=== PATIENT | male | born 1970 | race Caucasian/White ===

== ENCOUNTER 2024-08-03 13:56 | Emergency (ER) | payer MEDICARE, SELFPAY ==
[2024-08-03 13:57] VITALS: BP 116/78
[2024-08-03 14:07] VITALS: BP 126/71; BMI 25.9
--- NOTE | 2024-08-03 14:32 | EDRN ---
awaiting for a provider to see the pt
--- NOTE | 2024-08-03 15:49 | ED.GENMED ---
History of Present Illness
General
Chief Complaint: Crisis Evaluation
Source: patient
Exam Limitations: altered mental status
Time Seen by Provider: 08/03/24 14:59
Nursing documentation reviewed up to this point in time: agreed with
History of Present Illness
History of Present Illness:
54-year-old mentally ill brought in for medical clearance prior to psychiatric placement patient apparently has not been seen for a few days family found him and brought him here here he is cooperative mumbling apparently suffers from mental illness
he smokes does not drink
Past History
Past History
ED Past Medical History: Psychiatric
Social History
Tobacco: Smoker
Alcohol: None
Drug: None
Personal: Single
Living: homeless (??)
Employment: Not employed
Review of Systems
Review of Systems
Unable to obtain full review of systems at this time due to: other (Acutely mentally ill)
All Other Systems: Not applicable
Phy Exam
Physical Exam
Physical Exam:
Physical Exam
General: Chronically ill-appearing man
Neck: No jaundice
Heart: s1/s2 regular rate and rhythm, no murmur. equal radial pulses.
Lungs: Faint wheeze
Neuro: Moves all extremity
Skin: no rash
Psychiatric: Mumbling, disorganized
Extremities: no edema.
Course
Orders/Labs/Results
Orders:
Orders
08/03/24 14:06
One to One Observation - Suicide/Violent [1:1 Observation - Suicide/ Violent Behavior] As Directed
Crisis Consult Urgent
Reason for Consult: crisis
08/03/24 15:32
Acetaminophen Urgent
Alcohol Urgent
Complete Blood Count/With Diff Urgent
Comprehensive Metabolic Panel Urgent
Salicylate Urgent
08/03/24 15:53
Add On- LAB Urgent
Tests Added?: Depakene
08/03/24 16:08
Urine Drug Abuse Screen Urgent
Date Specimen was Collected: 08/03/24
Time Specimen was Collected: 16:07
08/03/24 16:19
Depakane Urgent
Comment: CANNOT ADD. MUST BE IN PLAIN RED TUBE.
Abnormal Lab Results
08/03/24
15:32
WBC 17.2 H 10^3/uL
(4.8-10.8)
RBC 4.37 L 10^6/uL
(4.70-6.10)
Hct 38.4 L %
(39.0-52.0)
MCH 31.4 H pg
(27.0-31.0)
Potassium 5.4 H mmol/L
(3.5-5.1)
Glucose 108 H mg/dl
(70-99)
Total Bilirubin 2.2 H mg/dl
(0.2-1.3)
AST 69 H U/L
(17-59)
Salicylates < 1.0 L mg/dl
(2.0-20.0)
Acetaminophen < 10 L ug/ml
(10-30)
08/03/24 15:32
08/03/24 15:32
Vital Signs
Initial and Last Documented VS:
Initial Vital Signs
Temp Pulse Resp BP Pulse Ox
98.8 F 120 18 116/78 96
08/03/24 13:57 08/03/24 13:57 08/03/24 13:57 08/03/24 13:57 08/03/24 13:57
Last Documented Vital Signs
Temp Pulse Resp BP Pulse Ox
98.6 F 72 16 126/71 99
08/03/24 14:07 08/03/24 14:07 08/03/24 14:07 08/03/24 14:07 08/03/24 14:07
MDM/Problems Addressed
Differential Diagnosis Includes:
Mental illness intoxication dehydration
MDM/Problems Addressed:
Mental L
Chronic conditions affecting care: Psychiatric illness
Acute Exacerbation and/or Progression of Chronic Illness: Psychiatric illness
*Pulse Oximetry
Patient hypoxic: no
*Critical Care Note
Total Time (30-74mins, 75-104mins- exclusive of procedures): Not Applicable
Update Note
Update Note:
Reviewed with pharmacy patient takes atorvastatin Depakote and Zyprexa
RN reports 302 being completed by family
1700 reviewed with Akanksha from crisis 302 not upheld patient we discharged home with outpatient follow-up Depakote level is pending
ED Attending Note
-
Portions of this chart may have been created with voice recognition software.� Occasional wrong word or��sound alike� substitutions may have occurred due to the inherent limitations of voice recognition software.
Discharge Plan
Departure
Patient Disposition: Home (Routine Discharge)
Date of Disposition: 08/03/24
Time of Disposition: 16:48
Patient with high blood pressure during this ER visit?: No
Condition: Good
Discharge Problem:
Chronic mental illness
Instructions: Anxiety, Adult (DC)
Prescriptions:
No Action
atorvastatin 20 mg Tablet
20 mg PO HS
divalproex 500 mg Tablet Extended Release 24 Hr
1,500 mg PO HS
olanzapine 20 mg Tablet
20 mg PO HS
Referrals:
UNKNOWN - PT NOT,INTERVIEWE [Family Provider] -
Interventions
Interventions:
*Risk Screen - Suicide Last Done: 08/03/24 13:59
*General Assessment Last Done: 08/03/24 14:07
*Neglect/Abuse Screening Last Done: 08/03/24 13:59
*ED- Fall Risk Assessment Last Done: 08/03/24 14:07
*ED COVID-19 Vaccine History Last Done: 08/03/24 13:59
ED-Psychological Assessment Last Done: 08/03/24 14:07
Discharge Date and Time
Print Language: YAKUT
[2024-08-03 15:50] LABS: ALT (SGPT) 28 U/L (0-50); AST (SGOT) 69 U/L (17-59); Acetaminophen < 10 ug/ml (10-30); Albumin 4.8 g/dl (3.5-5.0); Alkaline Phosphatase 73 U/L (38-126); Blood Urea Nitrogen 15 mg/dl (9-20); Calcium 10.2 mg/dl (8.4-10.2); Carbon Dioxide 26 mmol/L (22-30); Chloride 103 mmol/L (98-107); Estimated Creatinine Clearance 78 ml/min; Glucose 108 mg/dl (70-99); Potassium 5.4 mmol/L (3.5-5.1); Salicylate < 1.0 mg/dl (2.0-20.0); Sodium 139 mmol/L (135-145); Total Bilirubin 2.2 mg/dl (0.2-1.3); Total Protein 7.9 g/dl (6.3-8.2); eGFR > 60.00
[2024-08-03 15:51] LABS: Alcohol None Detected; Hematocrit 38.4 % (39.0-52.0); Hemoglobin 13.7 g/dL (13.0-18.0); Mean Corp Hgb Conc. 35.7 g/dL (33.0-37.0); Mean Corpuscular Hgb 31.4 pg (27.0-31.0); Mean Corpuscular Volume 87.9 fL (80.0-94.0); Mean Platelet Volume 9.7 fL (7.4-10.4); Platelet Count 295 10^3/uL (130-400); Red Blood Cell Count 4.37 10^6/uL (4.70-6.10); Red Cell Dist. Width 13.2 % (11.5-14.5); White Blood Cell Count 17.2 10^3/uL (4.8-10.8)
[2024-08-03 16:32] LABS: Amphetamines Negative (Negative); Barbiturates Negative (Negative); Benzodiazepines Negative (Negative); Buprenorphine Negative (Negative); Cocaine Negative (Negative); Marijuana Negative (Negative); Methadone Negative (Negative); Methamphetamines Negative (Negative); Opiates Negative (Negative); Phencyclidine Negative (Negative); Tricyclic Antidepressants Negative (Negative)
[2024-08-03 16:52] LABS: % Basophils 0.4 % (0-2); % Eosinophils 0.1 % (0-6); % Immature Granulocytes 0.4 % (0-0.5); % Lymphocytes 30.3 % (20.5-51.1); % Monocytes 7.3 % (1.7-9.3); % Neutrophils 61.5 % (42.2-75.2); Absolute Basophils 0.1 10^3/uL (0-0.2); Absolute Immature Granulocytes 0.1 10^3/uL (0-0.05); Absolute Lymphocytes 5.2 10^3/uL (1.2-3.4); Absolute Monocytes 1.3 10^3/uL (0.1-0.6); Absolute Neutrophils 10.6 10^3/uL (1.4-6.5); Nucleated Red Blood Cells % 0 % (-)
[2024-08-03 17:13] LABS: Depakane 77.8 ug/ml (50.0-120.0)
== END 2024-08-03 16:53 | disposition home or self-care (01) ==
LOC: EMR 13:56
PROVIDERS: EMERGENCY PHYSICIAN Emergency Medicine
DX: F99 Mental disorder, not otherwise specified (principal); F17.200 Nicotine dependence, unspecified, uncomplicated
CPT/HCPCS: 99283; 80053; 80143; 80164; 80179; 80306; 82077; 85025